=== PATIENT | male | born 1960 | race Caucasian/White ===

== ENCOUNTER 2019-11-26 13:38 | Emergency (ER) | payer BC, OTHER ==
[~2019-11-26] VITALS: Ht 175.3 cm; Wt 73.2 kg
[2019-11-26 13:48] VITALS: BP 161/96
--- NOTE | 2019-11-26 15:08 | NUR ---
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
[2019-11-26] MEDS ORDERED: DIPH,PERTUSS(ACELL),TET VAC/PF 0.5 ML IM-VACC ONE ×2 (16:00→16:10)
[2019-11-26] MEDS ORDERED: OMNIPAQUE 350 MG/ML, 150 ML BOTTLE ONE (16:25)
[2019-11-26] MEDS ORDERED: PROPARACAINE OPHTH 0.5%, 15ML LEFTEYE ONE (16:30)
[2019-11-26] MEDS ORDERED: FLUORESCEIN OPHTHALMIC 1 MG STRIP LEFTEYE ONE (16:30)
[2019-11-26] MEDS ORDERED: FLUORESCEIN OPHTHALMIC 1 MG STRIP ONE (16:37)
[2019-11-26] MEDS ORDERED: PROPARACAINE OPHTH 0.5%, 15ML ONE (16:37)
== END 2019-11-26 17:49 | disposition home or self-care (01) ==
LOC: ED 15:37
DX: S01.81XA Laceration without foreign body of other part of head, initial encounter (principal); J32.0 Chronic maxillary sinusitis; G89.11 Acute pain due to trauma; R07.89 Other chest pain; R51 Headache; R07.81 Pleurodynia; H53.142 Visual discomfort, left eye; I10 Essential (primary) hypertension; W01.0XXA Fall on same level from slipping, tripping and stumbling without subsequent striking against object, initial encounter; Y93.89 Activity, other specified; Y92.89 Other specified places as the place of occurrence of the external cause; Y99.8 Other external cause status
CPT/HCPCS: 70450; 90471; 90715; 99284; Q9967